=== PATIENT | male | born 1955 | race Caucasian/White ===

== ENCOUNTER 2019-01-21 20:09 | Inpatient (IN) | payer OTHER ==
[2019-01-21] MEDS ORDERED: Cefepime 2 GM VIAL ONE (21:47)
[2019-01-21] MEDS ORDERED: Adacel (T-DAP) 0.5 ML SYRINGE ONE (21:47)
[2019-01-21] MEDS ORDERED: cloNIDine 0.1 MG TAB ONE (21:50)
--- NOTE | 2019-01-21 21:50 | RAD ---
Radiograph right ankle 2 views: DATE: 01/21/2019 Time: 9:36 PM HISTORY: 63-year-old male status post acute traumatic injury due to fall COMPARISON: None FINDINGS: Posterior dislocation of the talus relative to tibial plafond and. Transversely oriented fracture of upper aspect of medial malleolus with medial displacement of distal fragment. Oblique fracture of distal fibular diaphysis with dorsal angulation and slight lateral displacement of distal fragment. IMPRESSION: Acute, traumatic fracture-dislocation of the ankle consisting of tibiotalar dislocation, displaced me dial malleolus fracture, and displaced distal fibular shaft fracture.
[2019-01-21] MEDS ORDERED: Ondansetron PF 4 MG/2 ML Vial ONE (22:20)
[2019-01-21] MEDS ORDERED: Morphine 4 MG/ML VIAL ONE (22:20)
[2019-01-21] MEDS ORDERED: Ketamine 50 MG/ML (10ML VIAL) ONE (23:21)
--- NOTE | 2019-01-21 23:39 | RAD ---
EXAM: Chest one view: HISTORY: Preoperative evaluation COMPARISON: None FINDINGS: Minimal nonspecific increased markings in the bases. Heart size: Within normal limits. Lungs: Clear of acute process. No evidence for confluent pneumonia, pleural effusion, acute edema, or pneumothorax, or other signifi cant acute process. IMPRESSION: No significant acute intrathoracic disease.
[2019-01-22] MEDS ORDERED: Ondansetron PF 4 MG/2 ML Vial IVP PRN ×2 (00:20→00:30)
[2019-01-22] MEDS ORDERED: Ondansetron ODT 4 MG TAB PO PRN (00:20)
[2019-01-22] MEDS ORDERED: hydrALAZINE 20 MG/ML VIAL SLOW IVP PRN (00:20)
[2019-01-22] MEDS ORDERED: Morphine 2 MG/ML SYRINGE SLOW IVP PRN (00:20)
[2019-01-22] MEDS ORDERED: Dextrose 50% Abboject 50 ML SYRINGE SLOW IVP PRN (00:20)
[2019-01-22] MEDS ORDERED: Morphine 4 MG/ML VIAL SLOW IVP PRN (00:20)
[2019-01-22] MEDS ORDERED: Dextrose 5% in Water 1,000 ML IV PRN (00:20)
[2019-01-22] MEDS ORDERED: traMADol HCl 50 MG TAB PO PRN (00:30)
[2019-01-22 00:34] LABS: #Eosinphils 0.2 thou/uL (0.0-0.7); #Lymphocytes 1.5 thou/uL (1.20-3.40); #Monocytes 0.7 thou/uL (0.11-0.59); #Neutrophils 8.9 thou/uL (1.40-6.50); %Basophils 0.2 % (0.0-1.0); %Eosinophils 1.5 % (0.0-10.0); %Lymphocytes 13.5 % (21.0-51.0); %Neutrophils 78.9 % (42.0-75.0); Hemoglobin 13.7 g/dL (14.0-18.0); Mean Corpuscular HGB CONC 34.1 g/dL (32.0-36.0); Mean Corpuscular Hemoglobin 30.3 pg (27.0-31.0); Mean Corpuscular Volume 88.8 fL (78.0-98.0); Mean Platelet Volume 7.4 fL (7.4-10.4); Platelet Count 233 thou/uL (130-400); RBC Distribution Width 12.4 % (11.5-14.5); Red Blood Cell (RBC) Count 4.54 mill/uL (4.70-6.10); White Blood Cell (WBC) Count 11.2 thou/uL (4.8-10.8)
[2019-01-22 00:41] LABS: PTT 23.8 SEC (22.9-36.1); Prothrombin Time 12.7 SEC (12.0-14.7)
[2019-01-22 00:56] LABS: Magnesium 1.6 mg/dL (1.6-2.6); Phosphorus 2.5 mg/dL (2.3-4.7)
[2019-01-22 00:57] LABS: ALT (SGPT) 12 U/L (8-55); AST (SGOT) 14 U/L (5-34); Alkaline Phosphatase 66 U/L (40-110); Anion Gap 16 mmol/L (10-20); BUN (Urea Nitrogen) 14 mg/dL (8.4-25.7); Bilirubin, Total 0.4 mg/dL (0.2-1.2); Calc. Creatinine Clearance 0 mL/min (70-130); Calcium 8.9 mg/dL (7.8-10.44); Carbon Dioxide 18 mmol/L (23-31); Chloride 102 mmol/L (98-107); Estimated GFR-MDRD 77; Glucose 306 mg/dL (80-115); Potassium 4.2 mmol/L (3.5-5.1); Sodium 132 mmol/L (136-145)
[2019-01-22 01:41] VITALS: BMI 41.3
[2019-01-22] MEDS: Sodium Chloride 0.9% 1,000 ML IV SCH ×2 (01:58→09:47)
[2019-01-22] MEDS: traMADol HCl 50 MG TAB PO PRN (02:35)
--- NOTE | 2019-01-22 03:40 | HP ---
REQUESTING PHYSICIAN: Dr. Baumann, ER physician. CONSULTS: Orthopedic Surgery, Dr. Alexis. HISTORY OF PRESENT ILLNESS: This is a 63-year-old gentleman, who is an inmate, who reports slipping and falling, injuring his right ankle. The patient denies any chest pain, shortness of breath, or dizziness prior to falling. The patient denies any other injuries or hitting his head. The patient was evaluated in the emergency room and found to have a right open dislocated trimalleolar fracture. The patient was given Ancef and a tetanus shot in the emergency room. The patient was also given ketamine for sedation to reduce the right ankle fracture. Trauma Service was asked to admit the patient. The patient was also given 1 L of normal saline in the emergency room and also morphine and Zofran for pain and nausea. PAST MEDICAL HISTORY: Hypertension, diabetes, hyperlipidemia, hypothyroid. PAST SURGICAL HISTORY: Hernia repair. SOCIAL HISTORY: The patient is a former tobacco user, quit approximately 25 years ago. ALLERGIES: DENIES ANY DRUG ALLERGIES. CURRENT MEDICATIONS: Include: 1. Metformin 1000 mg p.o. b.i.d. 2. Levothyroxine 150 mcg daily. 3. Hydrochlorothiazide 12.5 mg p.o. daily. 4. Glipizide 10 mg p.o. b.i.d. 5. Aspirin 81 mg p.o. daily. 6. Pravachol 20 mg p.o. at bedtime. 7. Lisinopril 40 mg p.o. daily. REVIEW OF SYSTEMS: A 10-point review of systems is negative unless otherwise indicated in the above HPI. PHYSICAL EXAMINATION: VITAL SIGNS: Blood pressure 138/81, pulse 108, respirations 18, SpO2 of 95% on room air. GENERAL: Middle-aged gentleman, incarcerated, in no acute distress. HEENT: Head is atraumatic and normocephalic. Pupils are equal bilateral. Extraocular muscles intact. Moist mucous membranes. NECK: Normal range of motion. Trachea midline. No cervical tenderness. RESPIRATORY: Equal chest rise and fall. Bilateral breath sounds clear. No wheezing, rales, or rhonchi. CARDIAC: Mildly tachycardic. Regular rate, regular rhythm. No murmurs. EXTREMITIES: Right lower extremity splinted. Cap refill less than 2 seconds. No focal motor deficits. Distal pulses intact. NEUROLOGIC: No focal deficit. GCS 15. The patient is oriented to person, place, time, and event. LABORATORY DATA: WBC 11.2, RBC 4.54, hemoglobin 13.7, hematocrit 40.3, platelets 233. PT 12.7, INR 1.0. Sodium 132, potassium 4.2, chloride 102, BUN 14, creatinine 0.99, estimated GFR 77, glucose 306, calcium 8.9, phosphorus 2.5, magnesium 1.6, alkaline phos 66. DIAGNOSTIC DATA: Right ankle x-ray: Acute traumatic fracture dislocation of the ankle consisting of tibiotalar dislocation, displaced medial malleolus fracture and a displaced distal fibular shaft fracture. Postreduction right ankle x-ray, pending. Chest x-ray. Impression: No significant acute intrathoracic disease. A 12-lead EKG, sinus tach with first-degree AV block with occasional premature atrial contractions, right bundle branch block, no T or T-wave abnormalities. ASSESSMENT: 1. Status post mechanical fall. 2. Right open trimalleolar fracture. 3. Acute traumatic pain. 4. Hyponatremia, likely secondary to hydrochlorothiazide use. 5. Type 2 diabetes mellitus with hyperglycemia. 6. History of hypertension, diabetes, hypothyroidism. PLAN: We will admit the patient to the surgical floor. The patient will be n.p.o. with maintenance IV fluids, normal saline at 120 mL/h. Dr. Alexis plans to take the patient to the operating room later on today. We will obtain Accu-Cheks a.c. and at bedtime and place the patient on a mild sliding scale. We will increase the sliding scale if needed. We will continue Ancef q.[address] the patient on a pain regimen. We will place a PT/OT consult to evaluate and treat postop. The plan was discussed with the patient who agrees. The plan will be discussed with the attending after this dictation. Job ID: [id number]
[2019-01-22] MEDS ORDERED: Ketorolac Tromethamine 30 MG/ML VIAL IVP SCH (03:45)
[2019-01-22] MEDS: Ibuprofen 600 MG TAB PO SCH ×3 (03:50→19:04)
[2019-01-22] MEDS: Levothyroxine 150 MCG TAB PO SCH (05:42)
[2019-01-22] MEDS: Acetaminophen 1,000 MG in Premix Bag 1 BAG IVPB SCH ×4 (05:42→23:54)
[2019-01-22] MEDS: CEFAZOLIN 2 GM in Premix Bag 1 BAG IVPB SCH ×3 (05:47→20:03)
[2019-01-22] MEDS: Insulin Regular 300 UNITS/3 ML VIAL SC PRN ×3 (06:14→21:18)
--- NOTE | 2019-01-22 07:37 | CON ---
DATE OF CONSULTATION: 01/22/2019 REQUESTING PHYSICIAN: Annalisa Santo MD BRIEF HISTORY OF PRESENT ILLNESS: The patient is a 63-year-old inmate, who reports that he slipped and fell on a wet floor on the evening of January 21, 2019. He denies shortness of breath or loss of consciousness. Upon arrival at the emergency room, he was found to have a fracture dislocation of the ankle with a small abrasion and puncture wound at the medial malleolus. He was given ketamine and then the fracture was reduced, and a splint applied. The patient was also given IV Ancef. He is now admitted to the Trauma Service with Orthopedic consultation requested. PAST MEDICAL HISTORY: Remarkable for diabetes, hypertension, hyperlipidemia, and hypothyroidism. PAST SURGICAL HISTORY: Hernia repair x2. MEDICATIONS: Include, 1. Metformin. 2. Levothyroxine. 3. Hydrochlorothiazide. 4. Glipizide. 5. Aspirin. 6. Pravachol. 7. Lisinopril. ALLERGIES: NONE KNOWN. SOCIAL HISTORY: Former tobacco user many years ago. Denies drug or alcohol use currently. FAMILY HISTORY: Noncontributory. REVIEW OF SYSTEMS: Denies recent fevers, chills, or sweats. Denies chest pain or shortness of breath. Denies numbness or tingling in lower extremities. PHYSICAL EXAMINATION: VITAL SIGNS: He is found to have a temperature 98.2, heart rate of 96, respiratory rate of 16, and blood pressure 128/79. HEENT: Atraumatic and normocephalic. HEART: Shows a regular rate and rhythm without murmur. LUNGS: Clear to auscultation bilaterally with good breath sounds. Chest wall is nontender. ABDOMEN: Round, but nontender. PELVIS: Stable and nontender. EXTREMITIES: Remarkable for bilateral upper extremities that are atraumatic. A left lower extremity also atraumatic. Right lower extremity remarkable for swelling and mild deformity at the ankle. He is found to have a very small puncture wound overlying the medial malleolus, but with surrounding skin in relatively good condition without bruising at this point in time. He is able to wiggle his toes. Foot compartments are soft. There is no pain with passive stretch. LABORATORY DATA: White count of 11.2, hematocrit of 40.3, and 233,000 platelets. INR 1.0. DIAGNOSTIC STUDIES: X-rays: Pre and post reduction x-rays of the right ankle are obtained. These remarkable for a bimalleolar ankle fracture with a reduced ankle joint. There is still displacement of both fractures, although significant improvement in alignment from the pre-reduction x-ray. ASSESSMENT: A 63-year-old inmate, status post ground level fall, sustaining fracture dislocation of right ankle. PLAN: At this time, the patient is admitted to the Trauma Service. We will proceed with open reduction and internal fixation as well as irrigation and debridement of this ankle. Today, I discussed with the patient risks and benefits of the procedure. Risks include, but are not limited to bleeding, infection, nerve injury, DVT, PE, malunion, nonunion, ankle pain, loss of limb, or life. The patient appears to understand and does wish to proceed. Written consent will be obtained prior to surgery. Job ID: [id number]
[2019-01-22] MEDS: Polyethylene Glycol 3350 17 GM Packet PO SCH (07:39)
[2019-01-22] MEDS: Famotidine 20 MG TAB PO SCH ×3 (07:40→20:02)
--- NOTE | 2019-01-22 07:53 | RAD ---
Exam:2 views right ankle HISTORY: Trauma. Pain. Status post reduction. COMPARISON: 01/21/2019 at 9:33 PM FINDINGS: Redemonstration of a medial malleolus fracture and distal fibular fracture. No significant change in alignment. IMPRESSION: Redemonstration of distal fibula fracture and medial malleolus fracture. No significant c hange in alignment.
[2019-01-22] MEDS ORDERED: Magnesium 2 GM/50 ML 2 GM in Premix Bag 1 BAG IVPB SCH (08:30)
[2019-01-22] MEDS ORDERED: PHOS-NAK 1 PKT PACK PO SCH (08:30)
[2019-01-22] MEDS: Gabapentin 300 MG CAP PO SCH ×3 (08:34→20:02)
[2019-01-22] MEDS ORDERED: FLU VACC QS2019-20(6MOS UP)/PF 60 MCG/0.5 ML SYRINGE IM ONE (09:00)
[2019-01-22] MEDS ORDERED: PROPOFOL 200 MG/20 ML VIAL ONE (09:55)
[2019-01-22] MEDS ORDERED: Ketorolac Tromethamine 30 MG/ML VIAL ONE (09:55)
[2019-01-22] MEDS ORDERED: Bupivacaine HCl 0.5%/Epinephrine 1:200,000/PF 30 ml Vial ONE (09:55)
[2019-01-22] MEDS ORDERED: PHENYLEPHRINE-NS 100 MCG/ML 10 ML SYRINGE ONE (09:55)
[2019-01-22] MEDS ORDERED: Ondansetron PF 4 MG/2 ML Vial ONE (09:55)
[2019-01-22] MEDS ORDERED: Fentanyl 100 MCG/2 ML VIAL ONE (11:54)
[2019-01-22] MEDS ORDERED: Midazolam HCl 2 mg/2 ml Vial ONE (11:54)
[2019-01-22] MEDS ORDERED: Promethazine HCl 25 MG/ML VIAL SLOW IVP PRN (13:52)
[2019-01-22] MEDS ORDERED: Ondansetron HCl/PF 4 MG/2 ML Vial IVP PRN (13:52)
[2019-01-22] MEDS ORDERED: Promethazine HCl 25 MG/ML VIAL IM PRN (13:52)
[2019-01-22] MEDS ORDERED: CEFAZOLIN 2 GM in Premix Bag 1 BAG IVPB SCH (14:00)
--- NOTE | 2019-01-22 14:25 | PRG ---
DATE OF SERVICE: 01/22/2019 SUBJECTIVE: The patient was seen this morning during rounds. He was lying in bed and comfortable. He reported that he had a slip and fall and subsequently has a right open trimalleolar fracture. Reported pain was moderately controlled, but would like more medications. He has been n.p.o. since midnight for surgery this morning with Orthopedic Surgery. OBJECTIVE: VITAL SIGNS: Temperature 96.1, pulse 83, respirations 16, oxygen saturation 96% on room air, blood pressure 137/82. GENERAL: Well-appearing middle-aged male, lying in bed with no signs of acute distress. PULMONARY: Equal chest rise and fall. Clear breath sounds bilaterally. No signs of acute respiratory distress. CARDIAC: Regular rate and rhythm. No murmurs, gallops, or rubs. GI: Abdomen is soft, nontender, and nondistended. EXTREMITIES: 2+ pulses in all extremities. Gross motor and sensation are intact. Right lower extremity with splint that is clean, dry, and in place with no signs of active oozing. NEUROLOGIC: GCS is 15. LABORATORY FINDINGS: There are no new laboratory findings to discuss. DIAGNOSTIC FINDINGS: There are no new diagnostic findings to discuss. ASSESSMENT: 1. Status post mechanical fall from standing. 2. Right open trimalleolar fracture. 3. History of diabetes, hypertension, and hypothyroidism. PLAN: The patient continues to be n.p.o. with normal saline at 120 an hour. He is going to the OR today with Orthopedic Surgery. We have held his home glipizide and metformin. He is on a mild sliding scale and will receive Lantus 10 mg at night for better glucose control. We have restarted his home medications as clinically indicated. Postoperatively, he worked with Physical and Occupational Therapy and likely needs a walker to get around. I have discussed with Case Management to work on placement back into the [facility] as it is unclear if they will allow him back to general population with a walker. We will follow up with that process. The patient was seen and examined by Dr. Desir before this dictation. Job ID: [id number]
--- NOTE | 2019-01-22 16:38 | RAD ---
Exam:Intraprocedure fluoroscopy HISTORY: Internal fixation. Fracture. COMPARISON: None FINDINGS: Metallic side plate traverses the distal fibular fracture. Near anatomic alignment. There i s a single distal syndesmotic screw. There are 2 screws that traverse the medial malleolus fracture. Near anatomic alignment. IMPRESSION: Intraoperative fluoroscopy.
[2019-01-22] MEDS: Simvastatin 5 MG TAB PO SCH (20:01)
[2019-01-22] MEDS: Insulin Glargine 10 UNITS in Pre-Filled Syringe 1 EACH SC SCH (20:04)
--- NOTE | 2019-01-23 01:39 | PRG ---
DATE OF SERVICE: 01/22/2019 SUBJECTIVE: The patient was seen this evening during evening rounds. The patient is awake, alert, in no distress. The patient is postop repair of his right open trimalleolar fracture earlier today. The patient reports that his pain is well controlled. The patient is tolerating a regular diet. The patient voices no complaints at this time. The patient does have a nerve block in place. The patient's right lower extremity splint is clean, dry, and intact. Cap refill is less than 3 seconds. OBJECTIVE: VITAL SIGNS: Stable and the patient remains afebrile. PLAN: Continue supportive care and pain regimen. We will have Physical and Occupational Therapy work with the patient in the morning. The plan was discussed with the patient who agrees. Job ID: [id number]
[2019-01-23] MEDS: Ibuprofen 600 MG TAB PO SCH ×3 (03:24→19:51)
[2019-01-23] MEDS: CEFAZOLIN 2 GM in Premix Bag 1 BAG IVPB SCH (03:25)
[2019-01-23] MEDS: Levothyroxine 150 MCG TAB PO SCH (06:16)
[2019-01-23] MEDS: Insulin Regular 300 UNITS/3 ML VIAL SC PRN ×4 (06:44→21:32)
[2019-01-23] MEDS: Aspirin 81 mg Enteric Coated Tablet PO SCH ×2 (08:52→19:49)
[2019-01-23] MEDS: Lisinopril 20 MG TAB PO SCH (08:52)
[2019-01-23] MEDS: Polyethylene Glycol 3350 17 GM Packet PO SCH (08:52)
[2019-01-23] MEDS: Gabapentin 300 MG CAP PO SCH ×3 (08:52→19:49)
[2019-01-23] MEDS: Hydrochlorothiazide 25 MG TAB PO SCH (08:52)
--- NOTE | 2019-01-23 09:44 | OP ---
DATE OF PROCEDURE: 01/22/2019 PREOPERATIVE DIAGNOSIS: Right trimalleolar ankle fracture with disruption of distal ankle syndesmosis. POSTOPERATIVE DIAGNOSIS: Right trimalleolar ankle fracture with disruption of distal ankle syndesmosis. PROCEDURE PERFORMED: Open reduction and internal fixation of right trimalleolar ankle with addition of syndesmotic screw. ANESTHESIA: General. OPTICAL LATHE OPERATOR: Charles Anguiano PA-C TOURNIQUET: Approximately 60 minutes at 300 mmHg. IMPLANTS: Synthes 8-hole one-third tubular plate. COMPLICATIONS: None. DRAINS: None. SPECIMEN: None. OUTCOME: Near-anatomic alignment. INDICATIONS FOR PROCEDURE: The patient is a 63-year-old gentleman, status post slip and fall sustaining a twisting injury to the right lower extremity. X-rays have demonstrated a fracture dislocation of the ankle with trimalleolar fracture and what appeared to be disruption of the distal syndesmosis. A closed reduction was performed in the emergency room, and the patient was now taken to the operating room for stabilization of this unstable fracture. Informed consent has been obtained. I believe all questions have been answered. DESCRIPTION OF PROCEDURE: The patient was brought to the operating room, and a time-out was performed followed by induction of general anesthesia. Next, a sterile prep and drape were performed of the right lower extremity. The limb was then exsanguinated with an Esmarch bandage. Tourniquet was inflated to 300 mmHg. A vertical incision was made over the lateral malleolus after skin was sharply incised. Dissection was carried down bluntly exposing the fracture. The fracture was reduced with a bone tenaculum, and then a K-wire was placed to help hold the reduction. Next, a lateral plate was applied. There was found to be a large butterfly fragment posterior; however, this was quite thin and had a couple of different fracture lines through it, and as such, this was allowed just to lay off against the posterior aspect of the main fracture fragments, but this was not stabilized with internal fixation. Next, a plate was applied to the lateral cortex of the distal fibula. Cortical screws were used to stabilize this plate to the bone getting a near-anatomic alignment. At this point, the mortise was tested, and there was found to be an instability at the distal anterior-inferior tib-fib ligament. As such, a medial incision was made. Dissection was carried down bluntly exposing the medial malleolus fracture. This was reduced and held in place with a bone tenaculum. There was a small hole in the skin medially. This was thoroughly irrigated with bulb syringe. Once reduced to 45 mm long, partially-threaded cancellous screws were passed from the tip of the medial malleolus obliquely across the fracture into the distal tibial metaphysis. Following this, a 4 mm syndesmotic screw was passed through the distal most hole of the fibular plate across both cortices of the fibula and across both cortices of the distal tibia stabilizing the ankle mortise and anatomic alignment. Final AP, lateral, and mortise views were obtained that showed acceptable alignment of hardware and anatomic reduction of the joint. The incision sites were then irrigated with bulb syringe, and the lateral side was closed in layers with 0 Vicryl, 2-0 Vicryl, and evans. Medial side was closed with nylon. Xeroform gauze, Webril, and fiberglass splint were applied to the leg. Tourniquet was let down, and the patient was transferred to recovery room in stable condition. There were no complications. He tolerated the procedure well. Job ID: [id number]
[2019-01-23] MEDS: traMADol HCl 50 MG TAB PO PRN ×2 (13:05→19:50)
[2019-01-23] MEDS: Cyclobenzaprine 10 MG TAB PO PRN ×2 (14:27→22:59)
[2019-01-23] MEDS: Acetaminophen 500 MG TAB PO SCH ×2 (15:05→19:49)
[2019-01-23] MEDS ORDERED: Acetaminophen 500 MG TAB PO SCH (18:00)
[2019-01-23] MEDS: Simvastatin 5 MG TAB PO SCH (19:49)
--- NOTE | 2019-01-23 20:29 | PRG ---
DATE OF SERVICE: 01/23/2019 SUBJECTIVE: The patient was seen this morning, sitting up at the edge of the bed with no signs of acute distress. He had no acute events overnight, and he reported his pain was well controlled. He had no complaints at the time of our evaluation. OBJECTIVE: VITAL SIGNS: Temperature 98.2, pulse 91, respirations 16, oxygen saturation 93% on room air, blood pressure 106/67. GENERAL: A well-appearing, middle-aged male, sitting up at edge of bed with no signs of acute distress. PULMONARY: Equal chest rise and fall. Clear breath sounds bilaterally. No signs of acute respiratory distress. CARDIAC: Regular rate and rhythm. No murmurs, gallops, or rubs. GI: Abdomen is soft, nontender, nondistended. EXTREMITIES: 2+ pulses in all extremities. Gross motor and sensation are intact. Right lower extremity with splint that is clean, dry, and intact. LABORATORY FINDINGS: There are no new laboratory findings to discuss. DIAGNOSTIC FINDINGS: There are no new diagnostic findings to discuss. ASSESSMENT: 1. Status post mechanical fall. 2. Right open trimalleolar fracture, status post repair. 3. History of diabetes, uncontrolled. 4. History of hypertension and hyperlipidemia. PLAN: Continue current diet and pain medications. We will increase the patient's sliding scale to moderate. He will continue to work with Physical and Occupational Therapy. He is ready for discharge at this time. At this time, he is pending an [facility] as he is not able to go back to general population due to his poor abilities to move around. The patient was seen and examined by Dr. Desir and myself, this morning during rounds. Job ID: [id number]
[2019-01-23] MEDS: Insulin Glargine 10 UNITS in Pre-Filled Syringe 1 EACH SC SCH (21:32)
--- NOTE | 2019-01-24 01:40 | PRG ---
DATE OF SERVICE: 01/23/2019 SUBJECTIVE: The patient was seen this evening on the surgical floor. The patient is postop repair of his right trimalleolar fracture postop day #1. The patient is currently resting comfortably in no acute distress. Two officers remain at bedside. OBJECTIVE: VITAL SIGNS: Stable, afebrile. PLAN: Continue supportive care and pain regimen. Continue physical and occupational therapy. The patient is pending an [facility] as he is not able to go back to [facility]. The patient is ready for discharge. We will continue to monitor patient's glucose and increase the patient's sliding scale as needed. Job ID: [id number] MTDD
[2019-01-24] MEDS: Acetaminophen 500 MG TAB PO SCH ×4 (02:58→21:50)
[2019-01-24] MEDS: Ibuprofen 600 MG TAB PO SCH ×3 (02:58→19:52)
[2019-01-24] MEDS: traMADol HCl 50 MG TAB PO PRN (04:16)
[2019-01-24 05:30] LABS: #Eosinphils 0.3 thou/uL (0.0-0.7); #Lymphocytes 1.1 thou/uL (1.20-3.40); #Monocytes 0.7 thou/uL (0.11-0.59); #Neutrophils 4.9 thou/uL (1.40-6.50); %Basophils 0.1 % (0.0-1.0); %Eosinophils 4.3 % (0.0-10.0); %Lymphocytes 16.2 % (21.0-51.0); %Neutrophils 69.4 % (42.0-75.0); Hemoglobin 11.8 g/dL (14.0-18.0); Mean Corpuscular HGB CONC 32.6 g/dL (32.0-36.0); Mean Corpuscular Hemoglobin 29.5 pg (27.0-31.0); Mean Corpuscular Volume 90.5 fL (78.0-98.0); Mean Platelet Volume 7.3 fL (7.4-10.4); Platelet Count 184 thou/uL (130-400); RBC Distribution Width 12.5 % (11.5-14.5)
[2019-01-24] MEDS: Insulin Regular 300 UNITS/3 ML VIAL SC PRN ×4 (05:44→19:53)
[2019-01-24] MEDS: Levothyroxine 150 MCG TAB PO SCH (05:44)
[2019-01-24 05:51] LABS: Anion Gap 10 mmol/L (10-20); BUN (Urea Nitrogen) 12 mg/dL (8.4-25.7); Calc. Creatinine Clearance 183 mL/min (70-130); Calcium 8.7 mg/dL (7.8-10.44); Carbon Dioxide 24 mmol/L (23-31); Chloride 103 mmol/L (98-107); Estimated GFR-MDRD Greater than 90; Glucose 196 mg/dL (80-115); Phosphorus 2.8 mg/dL (2.3-4.7); Sodium 133 mmol/L (136-145)
[2019-01-24] MEDS: Polyethylene Glycol 3350 17 GM Packet PO SCH (08:54)
[2019-01-24] MEDS: Aspirin 81 mg Enteric Coated Tablet PO SCH ×2 (08:55→21:50)
[2019-01-24] MEDS: Gabapentin 300 MG CAP PO SCH ×3 (08:55→19:52)
[2019-01-24] MEDS: Hydrochlorothiazide 25 MG TAB PO SCH (08:55)
[2019-01-24] MEDS: Lisinopril 20 MG TAB PO SCH (08:56)
[2019-01-24] MEDS: traMADol HCl 50 MG TAB PO SCH ×3 (10:35→22:44)
--- NOTE | 2019-01-24 13:47 | DIS ---
DATE OF ADMISSION: 01/22/2019 DATE OF DISCHARGE: 01/24/2019 ADMISSION DIAGNOSES: Mechanical fall and right open trimalleolar fracture. DISCHARGE DIAGNOSES: Mechanical fall and right open trimalleolar fracture. CONSULTING PHYSICIAN: Dr. Alexis of Orthopedic Surgery. PROCEDURES PERFORMED: The patient went to the OR on January 22, 2019, for fixation of a right open trimalleolar fracture. HOSPITAL COURSE: The patient is a 63-year-old male, who presented from assisted after a mechanical fall with a right open trimalleolar fracture. Upon evaluation, Orthopedic Surgery was consulted, and the patient went to the OR the next day for fixation of that injury. Postoperatively, he worked with Physical and Occupational Therapy [facility] At the time of discharge, the patient's pain was well controlled. He was tolerating a diabetic diet. He was working with Physical and Occupational Therapy, and he was voiding without difficulty. DISCHARGE DISPOSITION: [facility]. DISCHARGE CONDITION: Satisfactory. PHYSICAL EXAMINATION: VITAL SIGNS: Temperature 98.3, pulse 79, respirations 18, oxygen saturation 98% on room air, blood pressure 119/75. GENERAL: Well-appearing elderly male, sitting up in bed with no signs of acute distress. PULMONARY: Equal chest rise and fall. Clear breath sounds bilaterally. No signs of acute respiratory distress. CARDIAC: Regular rate and rhythm. No murmurs, gallops, or rubs. GI: Abdomen is soft, nontender, and nondistended. EXTREMITIES: 2+ pulses in all extremities. Gross motor and sensation are intact. NEUROLOGIC: GCS is 15. DISCHARGE INSTRUCTIONS: The patient was discharged to [facility]. Activity, as tolerated. He is nonweightbearing on the right lower extremity. He has a diabetic diet. He is to receive physical therapy as well as a walker and incentive spirometer. DISCHARGE MEDICATIONS: Include: 1. Tylenol. 2. Aspirin. 3. Flexeril. 4. Gabapentin. 5. Hydrochlorothiazide. 6. Ibuprofen. 7. Levothyroxine. 8. Lisinopril. 9. Pravastatin. 10. Tramadol. FOLLOWUP APPOINTMENTS: The patient is to follow up with Dr. Alexis of Orthopedic Surgery. No need for followup with Trauma Surgery. This is a summary of the patient's hospitalization. For full details, please see his medical record in its entirety. Job ID: [id number]
[2019-01-24 20:02] VITALS: BP 122/76; TEMP 98.3
[2019-01-24] MEDS: Simvastatin 5 MG TAB PO SCH (21:50)
[2019-01-24] MEDS: Insulin Glargine 10 UNITS in Pre-Filled Syringe 1 EACH SC SCH (22:18)
[2019-01-24] MEDS: Cyclobenzaprine 10 MG TAB PO PRN (22:44)
== END 2019-01-25 | DRG 493 ==
LOC: ERS 20:09 → EEVIPCON 20:09 → SURG A 01-22 01:23
PROVIDERS: ADMIT Surgery; ATTEND Surgery
PROC: 0QSJ04Z Reposition Right Fibula with Internal Fixation Device, Open Approach (ICD-10-PCS; principal; 2019-01-22)
PROC: 0QSG04Z Reposition Right Tibia with Internal Fixation Device, Open Approach (ICD-10-PCS; 2019-01-22)
PROC: 3E02340 Introduction of Influenza Vaccine into Muscle, Percutaneous Approach (ICD-10-PCS; 2019-01-22)
DX: S82.851B Displaced trimalleolar fracture of right lower leg, initial encounter for open fracture type I or II (principal); E87.1 Hypo-osmolality and hyponatremia; Z23 Encounter for immunization; W01.0XXA Fall on same level from slipping, tripping and stumbling without subsequent striking against object, initial encounter; I10 Essential (primary) hypertension; E78.5 Hyperlipidemia, unspecified; E03.9 Hypothyroidism, unspecified; E11.65 Type 2 diabetes mellitus with hyperglycemia; E66.01 Morbid (severe) obesity due to excess calories; Z68.41 Body mass index [BMI] 40.0-44.9, adult; Z87.891 Personal history of nicotine dependence; Z79.84 Long term (current) use of oral hypoglycemic drugs; Z79.82 Long term (current) use of aspirin; Z79.899 Other long term (current) drug therapy
CPT/HCPCS: 27818; 36415; 36416; 71045; 76000; 80048; 80053; 83735; 84100; 85025; 85610; 85730; 86850; 86900; 86901; 90471; 90686; 90715; 90732; 93005; 96361; 96365; 96375; 99156; C1713; G0008; G0009; J0131; J0670; J0690; J0692; J1815; J1885; J2250; J2270; J2405; J2704; J3010; J3475